=== PATIENT | male | born 1980 | race Caucasian/White ===

== ENCOUNTER → 2018-11-16 | Outpatient (CLI) | payer OTHER ==
--- NOTE | 2018-11-16 10:30 | CT ---
EXAMINATION TYPE: CT shoulder LT wo con DATE OF EXAM: 11/16/2018 COMPARISON: Chest x-ray 01/01/2018 HISTORY: Pain Lt Shoulder CT DLP: 484 mGycm Automated exposure control for dose reduction was used. Helical imaging through the shoulder. Coronal and sagittal reconstructions. FINDINGS: Bone mineralization is maintained, small probable bone island within the bony glenoid. There is no fr acture or dislocation present. Distal acromion is downturned. Muscle density is abnormal within the t riceps proximally, lesion measures 17 mm. No significant arthropathy of the acromioclavicular joint. Left lung apex as visualized is normal. IMPRESSION: CORRELATE FOR IMPINGEMENT. Indeterminate low dense focus within the triceps muscle proximally, MRI re commended for better evaluation.
== END | disposition home or self-care (01) ==
LOC: RADCTMAIN 07:28
PROVIDERS: ATTEND Orthopaedic Surgery
DX: M25.512 Pain in left shoulder (principal)